=== PATIENT | female | born 1995 | race Caucasian/White ===

== ENCOUNTER 2016-05-09 15:17 | Emergency (ER) | payer MEDICAID ==
--- NOTE | 2016-05-09 16:05 | ED Physician Chart ---
Chief Complaint/HPI - Patient Information Date Seen:: 05/09/16 Time Seen:: 15:50 Chief Complaint:: skin abscesses History of Present Illness:: over last 2-3 weeks series of skin abscesses that open, drain and dry. scattered over areas of body. relative with the same. now has large one on right shoulder. no hx antibx, DM, immunosuppression or other worrisome hx features. Allergies:: Allergies Allergy/AdvReac Type Severity Reaction Status Date / Time No Known Allergies Allergy Verified 05/09/16 15:37 Vitals:: Vital Signs - 8 hr 05/09/16 15:37 Temp 98.1 F HR 83 RR 17 BP 133/82 O2 Sat % 99 Historian:: Patient, Family Member Review:: Nurse's Note Reviewed Review of Systems - Review of Systems General/Constitutional: No fever, No chills, No weakness Skin: Skin lesions, No rash Neck: No neck pain Cardio Vascular: No chest pain Pulmonary: No SOB GI: No nausea, No vomiting, No diarrhea G/U: Other (not ) Allergic/Immuno: No urticaria Past Medical History - Past Medical History Social History: Non Smoker, No Drug Use, Single, Lives With Parents Surgical History: None Psychiatricy History: None Medication: None Family Medical History - Family Member Mother Other Medical History: patient denies family medical history Physical Exam - Physical Examination General/Constitutional: Awake, Well-developed, well-nourished, Alert, No distress, GCS 15, Non-toxic appearing, Ambulatory Head: Atraumatic Skin: No skin lesions (has 1x2 cm right shoulder soft tissue abscess intact, with mild erythema on edges only ) Neuro/Psych: Alert/oriented, Judgement/insight normal, Mood normal Assessment - Procedures Procedures:: 1% lido to right shoulder abscess locally; cleanse with iodine prep; 11 blade incision with 1 cm incision; copious pus removed and sac remnants debrided; cleanse; dress with neosporin/nomnstick/guaze. pt tolerated well. ED Septic Shock - . Is Septic Shock (SBP<90, OR Lactate>4 mmol\L) present?: No - <6hrs of presentation: Vital Signs: Vital Signs - 8 hr 05/09/16 15:37 Temp 98.1 F HR 83 RR 17 BP 133/82 O2 Sat % 99 Reassessment (Disposition) - Reassessment Reassessment Condition:: Improved - Diagnosis Diagnosis:: right shoulder soft tissue abscess with incision and drainage, suspected MRSA. no cellulitis. - Aftercare/Follow up Instructions Aftercare/Follow-Up Instructions:: Counseled pt regarding lab results/diagnosis & need follow up, Refer to Discharge Instructions - Patient Disposition Discharge/Transfer:: Home ED Discharge Plan - Patient Disposition Admit/Discharge/Transfer: PT DISCHARGED HOME Condition at Disposition: Stable Additional Instructions: cleanse bid, keep open to allow drainage; recheck if increased redness; tylenol for pain; f/u clinic for MRSA cleansing options or look on internet.
[2016-05-09] MEDS ORDERED: Triple Antibiotic 0.94 gm Pkt TP ONE (16:20)
[2016-05-09] MEDS ORDERED: Triple Antibiotic 0.94 gm Pkt TP STA (16:29)
== END 2016-05-09 16:38 | disposition home or self-care (01) ==
LOC: ER 15:17
DX: L02.413 Cutaneous abscess of right upper limb (principal)
CPT/HCPCS: 10060; A4217; J2001; Z7502; Z7610